=== PATIENT | female | born 1950 | race Caucasian/White ===

== ENCOUNTER → 2017-06-12 | Outpatient (CLI) | payer OTHER | LOC: FIMAGING 08:09 | PROVIDERS: ATTEND Internal Medicine Gastroenterology | DX: R07.9 Chest pain, unspecified (principal); K21.9 Gastro-esophageal reflux disease without esophagitis ==

== ENCOUNTER 2018-07-25 05:33 | Day surgery (SDC) | payer OTHER ==
[2018-07-25] MEDS ORDERED: GABAPENTIN 300 MG CAP PO ONE (06:32)
[2018-07-25] MEDS ORDERED: ACETAMINOPHEN 500 MG TAB PO ONE (06:32)
[2018-07-25] MEDS ORDERED: ceFAZolin 2 GM/DEXTROSE 100 ML IV ONE (06:32)
--- NOTE | 2018-07-25 06:32 | PDHPUP ---
History & Physical Update H&P update statement: This history and physical update is based on an assessment of the patient which was completed after admission or registration (within 24 hours), but prior to the surgery/procedure. H&P update: H&P reviewed & patient examined, no change in patient's condition since H&P completed
[2018-07-25 06:48] LABS: PLATELET COUNT 226 10^3/uL (150-400)
[2018-07-25] MEDS ORDERED: BUPIVACAINE/EPI 0.25% 30 ML SDV ONE (06:49)
[2018-07-25] MEDS ORDERED: CHLORHEXIDINE GLUC HIBICLENS 118 ML BTL TP ONE (06:49)
[2018-07-25] MEDS ORDERED: DEPO METHYLPREDNISOLONE 40 MG/ML SDV ONE (06:49)
[2018-07-25] MEDS ORDERED: THROMBIN (BOVINE) 5,000 UNIT VIAL TP ONE (06:49)
[2018-07-25] MEDS ORDERED: BACITRACIN 50,000 UNITS/10 ML SYR IRR ONE (06:50)
[2018-07-25] MEDS ORDERED: MIDAZOLAM 2 MG/2 ML VIAL IVP ONE (06:57)
--- NOTE | 2018-07-25 06:58 | PDANEPAE ---
ANE Past Medical History - Cardiovascular History Hx Hypertension: No Hx Arrhythmias: No Hx Chest Pain: No Hx Coronary Artery / Peripheral Vascular Disease: No Hx CHF / Valvular Disease: No Hx Palpitations: No Cardiovascular History Comment: BENIGN HEART MURMUR - Pulmonary History Hx COPD: No Hx Asthma/Reactive Airway Disease: No Hx Recent Upper Respiratory Infection: No Hx Oxygen in Use at Home: No Hx Sleep Apnea: No Sleep Apnea Screening Result - Last Documented: Positive - Neurologic History Hx Cerebrovascular Accident: No Hx Seizures: No Hx Dementia: No Neurologic History Comment: MIGRAINES - Endocrine History Hx Diabetes: No Endocrine History Comment: HYPOTHYROID - Renal History Hx Renal Disorders: No - Liver History Hx Hepatic Disorders: No - Neurological & Psychiatric Hx Hx Neurological and Psychiatric Disorders: No - Cancer History Hx Cancer: No - Congenital Disorder History Hx Congenital Disorders: No - GI History Hx Gastrointestinal Disorders: Yes Gastrointestinal History Comment: GERD - Other Health History Other Health History: NEG - Chronic Pain History Chronic Pain: Yes (BACK PAIN & R LEG) - Surgical History Prior Surgeries: EGD ANE Review of Systems Review of systems is: negative Review of Systems: - Exercise capacity Exercise capacity: >=4 METS METS (RN): 5 METS ANE Patient History - Allergies Allergies/Adverse Reactions: No Known Allergies Allergy (Unverified 11/02/16 17:46) - Home Medications Home medications: home medication list seen and reviewed Home Medications: Levothyroxine 07/24/18 [Last Taken 07/24/18] Tramadol HCl 07/24/18 [Last Taken 07/25/18 03:15] Tylenol 07/24/18 [Last Taken 07/24/18] - NPO status NPO Status: no food or drink >8 hours NPO Since - Liquids (Date): 07/25/18 NPO Since - Liquids (Time): 03:15 NPO Since - Solids (Date): 07/24/18 NPO Since - Solids (Time): 19:30 - Anes Hx Anes Hx: no prior problems - Smoking Hx Smoking Status: Never smoked - Family Anes Hx Family Hx Anesthesia Complications: NEG ANE Labs/Vital Signs - Labs Result Diagrams: 07/25/18 06:35 - Vital Signs Vital Signs: reviewed preoperatively; see RN documention for details Blood Pressure: 118/75 Heart Rate: 69 Respiratory Rate: 14 O2 Sat (%): 94 Height: 163.83 cm Weight: 69.853 kg ANE Physical Exam - Airway Neck exam: FROM Mallampati Score: Class 1 Mouth exam: normal dental/mouth exam - Pulmonary Pulmonary: no respiratory distress - Cardiovascular Cardiovascular: regular rate and rhythym - ASA Status ASA Status: II ANE Anesthesia Plan Anesthesia Plan: general endotracheal anesthesia Lines/Monitors: additional IV
[2018-07-25] MEDS ORDERED: REMIFENTANIL HCL 1 MG VIAL ONE (07:02)
[2018-07-25] MEDS ORDERED: PROPOFOL/EMULSION 500 MG/50 ML BOTTLE IV ONE ×2 (07:02→08:00)
[2018-07-25] MEDS ORDERED: fentaNYL 100 MCG/2 ML INJ ONE ×2 (07:02→09:12)
[2018-07-25] MEDS ORDERED: PETROLAT,WHT/MIN OIL/SOD CHL 3.5 GM OPHT.OINT ONE (07:08)
[2018-07-25] MEDS ORDERED: LIDOCAINE 2% 100 MG/5 ML SYR ONE (07:12)
[2018-07-25] MEDS ORDERED: ONDANSETRON 4 MG/2 ML VIAL ONE (08:29)
[2018-07-25] MEDS ORDERED: GLYCOPYRROLATE 0.2 MG/1 ML VIAL ONE ×3 (08:30→08:47)
[2018-07-25] MEDS ORDERED: NEOSTIGMINE METHYLSULFATE 5 MG/5 ML SYR ONE (08:30)
[2018-07-25] MEDS ORDERED: ACETAMINOPHEN 500 MG TAB PO PRN (08:32)
[2018-07-25] MEDS ORDERED: HYDROmorphONE/DILAUDID 2 MG/ML INJ IVP PRN (08:32)
[2018-07-25] MEDS ORDERED: ONDANSETRON 4 MG/2 ML VIAL IVP PRN (08:32)
[2018-07-25] MEDS ORDERED: ALBUTEROL 3 ML DEYVIAL IH PRN (08:32)
[2018-07-25] MEDS ORDERED: NALOXONE HCL 0.4 MG/ML INJ IVP PRN (08:32)
[2018-07-25] MEDS ORDERED: METOCLOPRAMIDE 10 MG/2 ML VIAL IVP PRN (08:32)
[2018-07-25] MEDS ORDERED: LR 500 ML IV PRN (08:32)
[2018-07-25] MEDS ORDERED: PHENYLEPHRINE HCL 100 MCG/ML SYR IVP PRN (08:32)
[2018-07-25] MEDS ORDERED: LABETALOL HCL 20 MG/4 ML INJ IVP PRN (08:32)
[2018-07-25] MEDS ORDERED: MEPERIDINE 25 MG/0.5 ML AMP IVP PRN (08:32)
[2018-07-25] MEDS ORDERED: PROMETHAZINE HCL 25 MG/ML INJ IVP PRN (08:32)
--- NOTE | 2018-07-25 08:33 | POSTANESTH ---
Post Anesthetic Evaluation Cardiovascular Status: Normal, Stable Respiratory Status: Normal, Stable Level of Consciousness/Mental Status: Can Participate in Eval Pain Control: Adequate, Prn Tx Ordered Nausea/Vomiting Control: Adequate, Prn Tx Ordered Complications Possibly Related to Anesthesia: None Noted
--- NOTE | 2018-07-25 08:56 | POSTOPPROG ---
Post Op Note Date of Operation: 07/25/18 Surgeon: Manda Bob Shank Pinner: SUSAN Mata Anesthesiologist: MD Lissette Anesthesia: GET(General Endotracheal), Local (Specify) Pre-op Diagnosis: right L5/S1 stenosis Post-op Diagnosis: right L5/S1 stenosis/cyst Indication: RLE pain Procedure: right L5/S1 EDILSON Findings: see op report Inf/Abcess present in the surg proc area at time of surgery?: No Depth: Deep Incisional (Fascial) EBL: 50-100 Total fluids administered: see anesthesia record Complications: none
--- NOTE | 2018-07-25 08:59 | SOAPPROG ---
SOAP Progress Note Assessment/Plan: Post Op Visit: S: Awake and alert. NAD. Pt with expected lower back pain O: AFVSS/PERRLA/EOMI no droop CN 2-12 grossly intact +lt touch 5/5 BUE/BLE = CDI A/P: 68 yo female that is s/p R L5/S1 EDILSON -orders in place -call with any questions or concerns -dc to home when criteria is met -pt understands and agrees -pt seen by Dr Bob Objective: Vital Signs Temp Pulse Resp BP Pulse Ox 36.5 C 69 14 118/75 94 07/25/18 07:21 07/25/18 07:21 07/25/18 07:21 07/25/18 07:21 07/25/18 07:21 Laboratory Results 07/25/18 06:35 ICD10 Worksheet Patient Problems: Problems Problem Status Onset H/O laminectomy Acute Lumbar radicular pain Acute Lumbar stenosis Acute - ICD10 Problem Qualifiers (1) Lumbar stenosis (2) Lumbar radicular pain (3) H/O laminectomy
[2018-07-25] MEDS: fentaNYL 100 MCG/2 ML INJ IVP PRN ×2 (09:20→09:28)
--- NOTE | 2018-07-25 09:51 | GOP ---
DATE OF OPERATION: 07/25/2018 SURGEON: Diogo Bob MD NEUROSURGEON: Diogo Bob MD. BANKING ANALYST: Aleksander Mata PA-C. PREOPERATIVE DIAGNOSIS: Right herniated nucleus pulposus, L5-S1. POSTOPERATIVE DIAGNOSIS: Right herniated nucleus pulposus, L5-S1. PROCEDURE PERFORMED: Right L5-S1 microdiskectomy, microscope. FINDINGS: ESTIMATED BLOOD LOSS: 10 cc. INDICATIONS: The patient is a 68-year-old, who I had seen previously for some problems in her neck t hat were nonoperative, and she developed acute severe radiating pain down the right leg, and an MRI d emonstrated a free disk fragment herniation at L5-S1. I suggested surgery. She was in agony, could not wait for injections, and we put her on the schedule immediately. The risk of recurrent disk eber iation, continued nerve injury and pain, numbness, tingling, and CSF leak was discussed. The risks w ere minimal, but the highest risk was that of a recurrent disk being as high as 10%. She wanted to p roceed despite the risks. DESCRIPTION OF PROCEDURE: The patient was taken to the operating room, placed in a supine position. General anesthesia was begun. She was flipped prone onto the [place] frame. Care was taken to pad a ll points of contact. A time-out was performed. She was sterilely prepped and draped in the usual f ashion. A localizing x-ray was taken. We made a 15 mm incision above the right L5-S1 disk. The sub cutaneous tissue was dissected using Bovie cautery down to the fascia and a subperiosteal dissection was made down the right L5-S1 lamina. Self-retaining retractor was placed. A localizing x-ray was juana sandoval. We drilled a minimal right L5-S1 hemilaminotomy under the microscope. We opened the ligamentu m flavum, identified the exiting or traversing S1 root. It was quite tight, it did not want to move, but we put a ball-tip probe and swept underneath it, and we were able to get mobilization of the ner ve in doing this, and underneath it was a prolapsed anulus of the L5-S1 disk. No knife was required. The disk was coming right through the outer layers of the annulus, and we removed a large fragment. The nerves relaxed. We were able to sweep freely underneath the nerve. There was a defect in the anulus that was created by the original disk herniation. We went through this and removed some addit ional loose pieces of disk and then irrigated the disk space. We did not do an aggressive diskectomy of the entire disk. We simply removed the subannular pieces that were loose and free-floating. We irrigated the disk, got some additional small pieces out. The nerve was totally free and mobile at t his point. We irrigated with antibiotic saline solution, put a little Depo-Medrol over the right S1 root, and then closed the incision in multiple layers using Vicryl sutures. Steri-Strips were applie d to the skin. The patient was reversed from anesthesia, extubated, and transferred to recovery room in stable condition. COMPLICATIONS: None. /[id number]/MODL
[2018-07-25] MEDS ORDERED: oxyCODONE IR 5 MG TAB ONE (10:35)
[2018-07-25 10:44] VITALS: BP 108/71
[2018-07-25] MEDS ORDERED: oxyCODONE IR 5 MG TAB PO ONE (10:45)
== END 2018-07-25 10:50 | disposition home or self-care (01) ==
LOC: FSGY 05:33
PROVIDERS: ATTEND Neurological Surgery
PROC: 00NY0ZZ Release Lumbar Spinal Cord, Open Approach (ICD-10-PCS; principal; 2018-07-25 07:15)
PROC: 4A10X4G Monitoring of Central Nervous Electrical Activity, Intraoperative, External Approach (ICD-10-PCS; principal; 2018-07-25 07:15)
PROC: BR19YZZ Fluoroscopy of Lumbar Spine using Other Contrast (ICD-10-PCS; principal; 2018-07-25 07:15)
DX: M51.17 Intervertebral disc disorders with radiculopathy, lumbosacral region (principal); M51.26 Other intervertebral disc displacement, lumbar region; M71.38 Other bursal cyst, other site; E03.9 Hypothyroidism, unspecified; G43.909 Migraine, unspecified, not intractable, without status migrainosus; K21.9 Gastro-esophageal reflux disease without esophagitis
CPT/HCPCS: J0690; J1030; J2001; J2250; J2405; J2704; J2710; J3010

== ENCOUNTER 2018-09-17 09:11 | Observation (INO) | payer OTHER ==
[2018-09-17] MEDS ORDERED: GABAPENTIN 300 MG CAP PO ONE (13:18)
[2018-09-17] MEDS ORDERED: ceFAZolin 2 GM/DEXTROSE 100 ML IV ONE (13:18)
[2018-09-17] MEDS ORDERED: ACETAMINOPHEN 500 MG TAB PO ONE (13:18)
[2018-09-17] MEDS ORDERED: LR 1,000 ML IV ONE (13:19)
[2018-09-17] MEDS ORDERED: MIDAZOLAM 2 MG/2 ML VIAL IVP ONE (14:36)
--- NOTE | 2018-09-17 14:55 | PDANEPAE ---
ANE Past Medical History - Cardiovascular History Hx Hypertension: No Hx Arrhythmias: No Hx Chest Pain: No Hx Coronary Artery / Peripheral Vascular Disease: No Hx CHF / Valvular Disease: No Hx Palpitations: No Cardiovascular History Comment: BENIGN HEART MURMUR - Pulmonary History Hx COPD: No Hx Asthma/Reactive Airway Disease: No Hx Recent Upper Respiratory Infection: No Hx Oxygen in Use at Home: No Hx Sleep Apnea: No Sleep Apnea Screening Result - Last Documented: Negative Pulmonary History Comment: allergy induced asthma - Neurologic History Hx Cerebrovascular Accident: No Hx Seizures: No Hx Dementia: No Neurologic History Comment: MIGRAINES - Endocrine History Hx Diabetes: No Endocrine History Comment: HYPOTHYROID - Renal History Hx Renal Disorders: No - Liver History Hx Hepatic Disorders: No - Neurological & Psychiatric Hx Hx Neurological and Psychiatric Disorders: No Neurological / Psychiatric History Comment: sciatica, migraine - Cancer History Hx Cancer: No - Congenital Disorder History Hx Congenital Disorders: No - GI History Hx Gastrointestinal Disorders: Yes Gastrointestinal History Comment: GERD - Other Health History 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 L5/S1 micro discectomy ANE Review of Systems Review of Systems: - Exercise capacity METS (RN): 4 METS ANE Patient History - Allergies Allergies/Adverse Reactions: No Known Allergies Allergy (Verified 09/11/18 16:24) - Home Medications Home Medications: Levothyroxine 07/24/18 [Last Taken 09/17/18] Acetaminophen [Tylenol ES 500 mg (*)] 09/11/18 [Last Taken 09/03/18] Methocarbamol 09/11/18 [Last Taken 09/17/18] Neurontin 300 MG (*) 300 mg 09/17/18 [Last Taken 09/17/18 05:30] - NPO status NPO Since - Liquids (Date): 09/17/18 NPO Since - Liquids (Time): 12:30 NPO Since - Solids (Date): 09/16/18 NPO Since - Solids (Time): 20:00 - Smoking Hx Smoking Status: Never smoked - Family Anes Hx Family Hx Anesthesia Complications: none ANE Labs/Vital Signs - Vital Signs Blood Pressure: 114/67 Heart Rate: 70 Respiratory Rate: 16 O2 Sat (%): 95 Height: 165.1 cm Weight: 68.039 kg ANE Physical Exam - Airway Neck exam: FROM Mallampati Score: Class 1 - Pulmonary Pulmonary: clear to auscultation - Cardiovascular Cardiovascular: regular rate and rhythym - ASA Status ASA Status: II ANE Anesthesia Plan Anesthesia Plan: general endotracheal anesthesia
[2018-09-17] MEDS ORDERED: REMIFENTANIL HCL 1 MG VIAL ONE (14:58)
[2018-09-17] MEDS ORDERED: PROPOFOL 200 MG/20 ML VIAL ONE (14:58)
[2018-09-17] MEDS ORDERED: PROPOFOL/EMULSION 500 MG/50 ML BOTTLE IV ONE (14:58)
[2018-09-17] MEDS ORDERED: fentaNYL 100 MCG/2 ML INJ ONE ×3 (15:01→17:44)
[2018-09-17] MEDS ORDERED: METHOCARBAMOL 750 MG TAB PO PRN (15:02)
[2018-09-17] MEDS ORDERED: MAGNESIUM HYDROXIDE 30 ML UDCUP PO PRN (15:02)
[2018-09-17] MEDS ORDERED: BISACODYL 10 MG SUPP PR PRN (15:02)
[2018-09-17] MEDS ORDERED: POLYETHYLENE GLYCOL 3350 17 GM PKT PO PRN (15:02)
[2018-09-17] MEDS ORDERED: HYDROmorphONE/DILAUDID 1 MG/ML INJ IVP PRN (15:02)
[2018-09-17] MEDS ORDERED: ONDANSETRON 4 MG/2 ML VIAL IVP PRN ×2 (15:02→17:16)
[2018-09-17] MEDS ORDERED: ONDANSETRON DISINTEGRATING 4 MG TAB PO PRN (15:02)
[2018-09-17] MEDS ORDERED: ZOLPIDEM TARTRATE 5 MG TAB PO PRN (15:02)
[2018-09-17] MEDS ORDERED: LACTULOSE 20 GM/30 ML UDCUP PO PRN (15:02)
[2018-09-17] MEDS ORDERED: diphenhydrAMINE 25 MG CAP PO PRN (15:02)
[2018-09-17] MEDS ORDERED: BACITRACIN 50,000 UNITS/10 ML SYR IRR ONE (15:07)
[2018-09-17] MEDS ORDERED: THROMBIN (BOVINE) 5,000 UNIT VIAL TP ONE (15:07)
[2018-09-17] MEDS ORDERED: EPINEPHrine 1 MG/ML INJ ONE (15:07)
[2018-09-17] MEDS ORDERED: CHLORHEXIDINE GLUC HIBICLENS 118 ML BTL TP ONE (15:07)
[2018-09-17] MEDS ORDERED: NS 1,000 ML IV SCH (15:15)
[2018-09-17] MEDS ORDERED: DEXAMETHASONE 4 MG/ML VIAL ONE (15:57)
[2018-09-17] MEDS ORDERED: ePHEDrine SULFATE 25 MG/5 ML SYR ONE (16:05)
[2018-09-17] MEDS ORDERED: PHENYLEPHRINE 10 MG/ML SDV ONE (16:11)
[2018-09-17] MEDS ORDERED: DEPO METHYLPREDNISOLONE 40 MG/ML SDV ONE (17:09)
[2018-09-17] MEDS ORDERED: ONDANSETRON 4 MG/2 ML VIAL ONE (17:14)
[2018-09-17] MEDS ORDERED: PROMETHAZINE HCL 25 MG/ML INJ IVP PRN (17:16)
[2018-09-17] MEDS ORDERED: MEPERIDINE 25 MG/0.5 ML AMP IVP PRN (17:16)
[2018-09-17] MEDS ORDERED: NALOXONE HCL 0.4 MG/ML INJ IVP PRN (17:16)
[2018-09-17] MEDS ORDERED: DIAZEPAM 5 MG/ML 1 ML SYR IVP PRN (17:16)
[2018-09-17] MEDS ORDERED: LR 500 ML IV PRN (17:16)
[2018-09-17] MEDS ORDERED: ALBUTEROL 3 ML DEYVIAL IH PRN (17:16)
[2018-09-17] MEDS ORDERED: LABETALOL HCL 5 MG/ML 20 ML MDV IVP PRN (17:16)
[2018-09-17] MEDS ORDERED: HYDROmorphONE/DILAUDID 2 MG/ML INJ IVP PRN (17:16)
--- NOTE | 2018-09-17 17:38 | POSTOPPROG ---
Post Op Note Date of Operation: 09/17/18 Surgeon: Manda Bob Financial Administrative Assistant: SUSAN Mata Anesthesiologist: MD Lissette Anesthesia: GET(General Endotracheal), Local (Specify) Pre-op Diagnosis: recurrent HNP right L5/S1 Post-op Diagnosis: recurrent HNP right L5/S1 Indication: RLE pain Procedure: redo right L5/S1 EDILSON Findings: see op report Inf/Abcess present in the surg proc area at time of surgery?: No Depth: Deep Incisional (Fascial) EBL: 50-100 Total fluids administered: see anesthesia record Complications: none
--- NOTE | 2018-09-17 17:40 | SOAPPROG ---
SOAP Progress Note Assessment/Plan: Post Op Visit: S: Awake and alert. NAD. Pt with expected lower back pain O: AFVSS/PERRLA/EOMI no droop CN 2-12 grossly intact 5/5 BUE/BLE = CDI A/P: 68 yo female that is s/p redo right L5/S1 EDILSON -orders in place -call with any questions or concerns -pt understands and agrees -pt seen by Dr Bob as well Objective: Vital Signs Temp Pulse Resp BP Pulse Ox 36.7 C 70 16 114/67 95 09/17/18 13:36 09/17/18 14:55 09/17/18 14:55 09/17/18 14:55 09/17/18 14:55 ICD10 Worksheet Patient Problems: Problems Problem Status Onset H/O laminectomy Acute Lumbar radicular pain Acute Lumbar stenosis Acute
[2018-09-17] MEDS: fentaNYL 100 MCG/2 ML INJ IVP PRN ×2 (17:46→17:56)
--- NOTE | 2018-09-17 18:59 | GOP ---
DATE OF OPERATION: 09/17/2018 SURGEON: Diogo Bob MD CLEANER AND PREPARER: Aleksander Mata PA-C. PREOPERATIVE DIAGNOSIS: Recurrent disk herniation, L5-S1. POSTOPERATIVE DIAGNOSIS: Recurrent disk herniation, L5-S1. PROCEDURE PERFORMED: Right L5-S1 re-exploration of disk herniation. ([id number]) Microscope. FINDINGS: ESTIMATED BLOOD LOSS: Was 10 cc. INDICATIONS: The patient is a 68-year-old who underwent a very successful right L5-S1 microdiskectom y back in June with resolution of her right leg pain, who subsequently several weeks later develo ped severe recurrent leg pain. She thought she was doing too much and she felt the sudden onset of s evere pain down the right leg. It is difficult to tolerate, and a repeat MRI was done and she had ev idence of a recurrent large disk herniation L5-S1. The fact, the recurrence was larger than the orig inal disk. She underwent an epidural steroid injection, continue to have symptoms and because of thi s, she desired to have surgery. I thought re-exploration of the same disk was reasonable. The risk of CSF leak, nerve injury, and continued symptoms were discussed. She accepted these risks. She wan karey to proceed. DESCRIPTION OF PROCEDURE: The patient was taken to the operating room, placed in a supine position. General anesthesia was begun. She was flipped prone onto the Toñito frame. Care was taken to pad a ll points of contact. Her back was sterilely prepped and draped in usual fashion. We then opened th e prior incision in the midline. The subcutaneous tissue was dissected using Bovie cautery down to t he fascia and a subperiosteal dissection was made down the right L5-S1 lamina. We the soft tissue from the prior laminotomy defect at L5-S1. There was a small amount of Gelfoam in the lamino courtney defect. I introduced the operating microscope. We shot an x-ray confirming our location at L5- S1. There was an obvious laminotomy defect, however, and we began to probe this area. The dura was immediately present. We identified the traversing S1 nerve root, and really it was being dramaticall y compressed by a mass that was underneath it. We were unable to move it. We had enlarged the josh otomy opening inferiorly and laterally just slightly by a few millimeters. We even enlarged it rostr ally by a couple millimeters. This freed the S1 root somewhat, and we were able to get lateral to th e root and mobilize it and underneath it was a large mass. We began removing this mass, it is consis tent with a recurrent disk herniation. The more of this mass we removed, the more mobile the S1 root became and it became ultimately very mobile and we were able to move it around significantly. We en tered the L5-S1 disk, removed the disk and the central parts of the disks that were totally loose. W e did not remove the cartilaginous endplates whatsoever. We completely removed the intraspinal porti ons of the herniated disk, and indeed the fragments removed were much larger than the original fragme nt that we had encountered. The posterior wall of the L5-S1 disk had been disrupted by this new eber iation. We did not require a 15 blade to cut into the L5-S1 disk. We did use a 15 blade to cut some of the epidural veins lateral to the nerve root, but not the actual anulus of the disk itself in thi s case. We removed all these free fragments of disk, had a great decompression of the traversing S1 root and irrigated with antibiotic saline solution, and then placed a little Depo-Medrol over the rig ht S1 root. We then closed the incision in multiple layers using Vicryl sutures and running PDS was placed in the skin itself. The patient was reversed from anesthesia, extubated, and transferred to located within [facility] recovery room in stable condition. There were no complications. COMPLICATIONS: None. /[id number]/MODL
[2018-09-17] MEDS: ACETAMINOPHEN 500 MG TAB PO SCH (20:54)
[2018-09-17] MEDS: FAMOTIDINE 20 MG TAB PO SCH (20:54)
[2018-09-17] MEDS: SENNOSIDES/DOCUSATE SODIUM TAB PO SCH (20:54)
[2018-09-17] MEDS: GABAPENTIN 300 MG CAP PO SCH (20:54)
[2018-09-17] MEDS: ceFAZolin 2 GM/DEXTROSE 100 ML IV SCH (23:04)
[2018-09-17] MEDS ORDERED: ceFAZolin 2 GM/DEXTROSE 100 ML IV SCH (23:30)
[2018-09-18] MEDS: ACETAMINOPHEN 500 MG TAB PO SCH (06:06)
[2018-09-18] MEDS: GABAPENTIN 300 MG CAP PO SCH (06:06)
[2018-09-18] MEDS: ceFAZolin 2 GM/DEXTROSE 100 ML IV SCH (06:07)
--- NOTE | 2018-09-18 07:07 | NEUSURGPN ---
Date of Surgery: 09/17/18 Post Op Day: 1 Assessment/Plan: Assessment: 68 yo female that is s/p redo right L5/S1 EDILSON POD #1 Plan: -s/p redo right L5/S1 EDILSON: pt states that the right leg feels good. She has some expected lower back pain that is mild in nature -pt rested well last night -no bending or twisting -PT/OT pending this am then will dc home -pt has Robaxin and Oxycodone at home-no home Rx is needed -orders in place -call with any questions or concerns -pt understands and agrees -pt seen/examined by Dr Bob as well Subjective: Awake and alert. NAD. Eating/drinking and voiding. Pt walking well in he hallway. No vasquez/neck/chest/abd or gu complaints. Objective: AFVSS/PERRLA/EOMI no droop CN 2-12 grossly intact 5/5 BUE/BLE = CDI Neuro Check Frequency: per routine Urinary Catheter in Place: No - Physician Discussed Patient with : Paulino Patient Seen by : Paulino Neurosurgery Physical Exam - Vitals, I&O, Labs I and O 09/17/18 09/18/18 09/19/18 05:59 05:59 05:59 Intake Total 2980 Output Total 620 Balance 2360 Weight 68.039 kg Intake: Oral (ml) 1780 IV Intake (ml) 1000 IV Infused (ml) 200 ceFAZolin 2 GM/DEXTROSE 200 100 ml @ 200 mls/hr IV [facility] Rx#:[id number] Output: Urine (ml) 600 Toilet 600 Estimated Blood Loss (ml) 20 Other: Intake Quantity Yes Sufficient Number of Voids Toilet 1 Vital Signs Temp Pulse Resp BP Pulse Ox 37.1 C 64 16 91/51 L 90 L 09/17/18 23:07 09/17/18 23:07 09/17/18 23:07 09/17/18 23:07 09/17/18 23:07 ICD10 Worksheet Patient Problems: Problems Problem Status Onset H/O laminectomy Acute Lumbar radicular pain Acute Lumbar stenosis Acute
[2018-09-18] MEDS: FAMOTIDINE 20 MG TAB PO SCH (07:52)
[2018-09-18] MEDS: SENNOSIDES/DOCUSATE SODIUM TAB PO SCH (07:52)
[2018-09-18] MEDS: oxyCODONE IR 5 MG TAB PO PRN ×2 (07:53→11:00)
[2018-09-18 09:02] VITALS: BP 114/68
--- NOTE | 2018-09-18 11:18 | ASMTLACE ---
LACE Length of stay for Answers: 2 days current admission Acuity / Level of Answers: No Care: Did the patient have an inpatient admission? Comorbidities - select Answers: Opioid dependence all that apply / Chronic pain Other Notes: Hypothyroid; GERD # of Emergency department Answers: 0 visits in the last 6 months Score: 7 Date Signed: 09/18/2018 11:17 AM Electronically Signed By:MATTHEW Elizabeth
--- NOTE | 2018-09-18 11:19 | ASMTCMCOM ---
CM Note CM Note Notes: Pt medically stable for d/c with spouse. PT rec home. No CM d/c needs identified. Date Signed: 09/18/2018 11:18 AM Electronically Signed By:MATTHEW Elizabeth
[2018-09-20] MEDS ORDERED: ENOXAPARIN 40 MG/0.4 ML SYR SC SCH (09:00)
== END 2018-09-18 11:13 | disposition home or self-care (01) ==
LOC: F3N 13:05
PROVIDERS: ADMIT Neurological Surgery; ATTEND Neurological Surgery
PROC: 8E0WXBG Computer Assisted Procedure of Trunk Region, With Computerized Tomography (ICD-10-PCS; principal; 2018-09-17 15:00)
PROC: BR191ZZ Fluoroscopy of Lumbar Spine using Low Osmolar Contrast (ICD-10-PCS; principal; 2018-09-17 15:00)
PROC: 00NY0ZZ Release Lumbar Spinal Cord, Open Approach (ICD-10-PCS; principal; 2018-09-17 15:00)
PROC: 4A10X4G Monitoring of Central Nervous Electrical Activity, Intraoperative, External Approach (ICD-10-PCS; principal; 2018-09-17 15:00)
DX: M51.27 Other intervertebral disc displacement, lumbosacral region (principal); M54.17 Radiculopathy, lumbosacral region; E03.9 Hypothyroidism, unspecified; G43.909 Migraine, unspecified, not intractable, without status migrainosus; R01.1 Cardiac murmur, unspecified; K21.9 Gastro-esophageal reflux disease without esophagitis; Z23 Encounter for immunization
CPT/HCPCS: 63042; 90686; 97161; 97165; G0008; J0171; J0690; J1030; J1100; J2250; J2370; J2405; J2704; J3010